=== PATIENT | male | born 1980 | race African-American/Black ===

== ENCOUNTER 2021-06-23 23:18 | Emergency (ER) | payer SELFPAY ==
[2021-06-24] MEDS ORDERED: Acetaminophen 500 MG TAB ONE (00:41)
[2021-06-24] MEDS ORDERED: Ibuprofen 200 MG TAB ONE (00:41)
== END 2021-06-24 00:46 | disposition home or self-care (01) ==
LOC: CSHERS 23:18
DX: M54.50 Low back pain, unspecified (principal)
CPT/HCPCS: 99283

== ENCOUNTER 2021-07-14 08:59 | Emergency (ER) | payer SELFPAY ==
[2021-07-14] MEDS ORDERED: Ketorolac Tromethamine 30 MG/ML VIAL ONE (09:43)
[2021-07-14 21:20] LABS: SARS-CoV-2 PCR by NAA DETECTED (NotDetected)
== END 2021-07-14 10:22 | disposition home or self-care (01) ==
LOC: CSHERS 08:59
DX: U07.1 COVID-19 (principal)
CPT/HCPCS: 87804; 93005; J1885; U0003; U0005

== ENCOUNTER 2022-11-08 13:00 | Emergency (ER) | payer SELFPAY ==
[2022-11-08 14:32] LABS: #Eosinphils 0.2 10x3/uL (0.0-0.5); #Monocytes 0.6 10x3/uL (0.0-1.1); %Basophils 0.6 % (0.0-2.0); %Lymphocytes 28.7 % (18.0-47.0); %Monocytes 10.8 % (0.0-10.0); %Neutrophils 55.7 % (40.0-75.0); Hemoglobin 14.5 g/dL (13.5-17.5); Mean Corpuscular Hemoglobin 26.4 pg (27.0-33.0); Mean Corpuscular Volume 80.1 fl (81.2-95.1); Mean Platelet Volume 10.8 fl (7.4-10.4); Platelet Count 209 10x3/uL (150-450); RBC Distribution Width 14.1 % (11.5-14.5); Red Blood Cell (RBC) Count 5.49 10x6/uL (4.32-5.72); White Blood Cell (WBC) Count 5.3 10x3/uL (3.5-10.5)
[2022-11-08 14:48] LABS: ALT (SGPT) 35 U/L (8-55); AST (SGOT) 23 U/L (5-34); Albumin 4.8 g/dL (3.5-5.0); Alkaline Phosphatase 48 U/L (40-110); Anion Gap 13 mmol/L (10-20); BUN (Urea Nitrogen) 11 mg/dL (8.9-20.6); Bilirubin, Total 0.4 mg/dL (0.2-1.2); CK (CPK) 189 U/L (30-200); Calc. Creatinine Clearance 0 mL/min (70-130); Carbon Dioxide 26 mmol/L (22-29); Chloride 103 mmol/L (98-107); Estimated GFR 75; Globulin 3.3 g/dL (2.4-3.5); Glucose 106 mg/dL (70-105); Protein, Total 8.1 g/dL (6.0-8.3); Sodium 138 mmol/L (136-145)
== END 2022-11-08 15:50 | disposition home or self-care (01) ==
LOC: CSHERS 13:00
DX: M79.602 Pain in left arm (principal); R20.2 Paresthesia of skin
CPT/HCPCS: 72040; 80053; 82550; 84484; 85025; 93005

== ENCOUNTER 2022-12-20 11:46 | Emergency (ER) | payer SELFPAY ==
[2022-12-20] MEDS ORDERED: cefTRIAXone (ROCEPHIN) 500 MG VIAL ONE (12:24)
[2022-12-20] MEDS ORDERED: Lidocaine 1% MPF 2 ML VIAL ONE (12:26)
[2022-12-20 20:08] LABS: Chlam.trachomatis by PCR,Urine Not Detected (NotDetected); GC N.gonorrhoeae PCR,UrineVOID Not Detected (NotDetected)
== END 2022-12-20 13:00 | disposition home or self-care (01) ==
LOC: CSHERS 11:46
DX: R36.9 Urethral discharge, unspecified (principal)
CPT/HCPCS: 87491; 87591; 96372; 99283; J0696

== ENCOUNTER 2023-03-07 18:50 | Emergency (ER) | payer SELFPAY | END 2023-03-07 20:17 | disposition home or self-care (01) | LOC: CSHERS 18:50 | DX: L73.9 Follicular disorder, unspecified (principal) | CPT/HCPCS: 99282 ==